=== PATIENT | male | born 1975 ===

== ENCOUNTER 2024-01-08 11:52 | Day surgery (SDC) | payer BC ==
[2024-01-08] VITALS (26 sets, daily range): BP systolic 113–154; BP diastolic 76–135
[~2024-01-08] VITALS: Ht 162.6 cm; Wt 69.4 kg
[~2024-01-08 11:52] MED LIST: Acetaminophen650 M1 PO; LISI20 PO; MULTI-VITAMIN1 EAC2 PO; NS 500 ML IV SCH; propofoL 40 ML IV ONE
--- NOTE | 2024-01-08 12:18 | NUR ---
Ambulatory in Day Surgery. History, Chart, Medications and Allergies reviewed before start of procedure. Lungs clear T/O to Auscultation. Patient confirms NPO status and agrees with scheduled surgery. Pre-Op teaching done. Pt verbalizes understanding. Patient States Post-Procedure ride home has been arranged.
--- NOTE | 2024-01-08 12:36 | NUR ---
01/08/24 1236 Randy Zaidi CONFIRMED AND REVIEWED H&P, MEDCICATIONS, ALLERGIES, MEDICAL HISTORY, RESPIRATORY HISTORY, VITAL SIGNS, 3-LEAD EKG, CONSENTS, AND PHYSICIAN ORDERS. PATIENT CONFIRMS NPO STATUS AND AGREES WITH SCHEDULED PROCEDURE. MONITOR INTACT WITH CONTINUOUS PULSE OXIMETRY, CAPNOGRAPHY, 3-LEAD EKG, INTERMITTENT BP. SUPPLEMENTAL O2 TO BE TITRATED THROUGHOUT PROCEDURE TO MAINTAIN O2 SATURATION ABOVE 90%. PATIENT DETERMINED TO BE ASA APPROPRIATE FOR PROPOFOL SEDATION PRIOR TO START OF PROCEDURE BY DR. TODD.
--- NOTE | 2024-01-08 13:53 | NUR ---
Patient up to Ambulate independently. Gait steady. Discharge instructions reviewed with patient. Patient verbalizes understanding. Copy given to patient to take home. Patient States Post-Procedure ride home has been arranged. Discharged via wheelchair to private car for ride home.
== END 2024-01-08 13:43 | disposition home or self-care (01) ==
LOC: ORSCMMR 11:52 → ORSCSDS 12:15 → ORSCMMR 13:15 → ORSCSDS 13:15 → ORSCMMR 13:43
PROVIDERS: Internal Medicine Gastroenterology
PROC: 0DBP8ZX Excision of Rectum, Via Natural or Artificial Opening Endoscopic, Diagnostic (ICD-10-PCS; principal; 2024-01-08 13:15)
PROC: 0DBK8ZX Excision of Ascending Colon, Via Natural or Artificial Opening Endoscopic, Diagnostic (ICD-10-PCS; principal; 2024-01-08 13:15)
PROC: 0DB78ZX Excision of Stomach, Pylorus, Via Natural or Artificial Opening Endoscopic, Diagnostic (ICD-10-PCS; principal; 2024-01-08 13:15)
DX: K21.9 Gastro-esophageal reflux disease without esophagitis (principal); R11.0 Nausea; K29.70 Gastritis, unspecified, without bleeding; Z12.11 Encounter for screening for malignant neoplasm of colon; D12.2 Benign neoplasm of ascending colon; K62.1 Rectal polyp; R10.13 Epigastric pain; I10 Essential (primary) hypertension; Z79.899 Other long term (current) drug therapy
CPT/HCPCS: 88305; 88342; J2704; J7040

== ENCOUNTER 2025-02-02 06:05 | Day surgery (SDC) | payer OTHER, BC | END 2025-02-02 11:56 | disposition home or self-care (01) | LOC: ORSCMMR 06:05 | PROC: 0LS34ZZ Reposition Right Upper Arm Tendon, Percutaneous Endoscopic Approach (ICD-10-PCS; principal; 2025-02-02) | PROC: 0LM14ZZ Reattachment of Right Shoulder Tendon, Percutaneous Endoscopic Approach (ICD-10-PCS; principal; 2025-02-02) | DX: S43.431A Superior glenoid labrum lesion of right shoulder, initial encounter (principal); S46.211A Strain of muscle, fascia and tendon of other parts of biceps, right arm, initial encounter; Y93.39 Activity, other involving climbing, rappelling and jumping off; I10 Essential (primary) hypertension; Z79.899 Other long term (current) drug therapy ==